=== PATIENT | male | born 1960 | race Caucasian/White ===

== ENCOUNTER 2023-10-31 02:14 | Emergency (ER) | payer MEDICARE, OTHER ==
[~2023-10-31] VITALS: Ht 172.7 cm; Wt 117.9 kg
[2023-10-31 02:37] LABS: *OCCULT BLOOD STOOL NEGATIVE (NEGATIVE)
[2023-10-31 02:55] LABS: BASOPHILS # (AUTO) 0.1 K/UL (0.0-0.2); BASOPHILS % (AUTO) 0.8 % (0.0-2.0); EOSINOPHILS # (AUTO) 0.2 K/uL (0.0-0.7); EOSINOPHILS % (AUTO) 1.6 % (0.0-7.0); HEMATOCRIT 41.5 % (36.7-47.1); HEMOGLOBIN 13.1 g/dL (12.5-16.3); LYMPHOCYTES # (AUTO) 2.6 K/uL (0.8-4.8); LYMPHOCYTES % (AUTO) 21.2 % (20.5-51.5); MEAN CORPUSCULAR HEMOGLOBIN 25.9 uug (23.8-33.4); MEAN CORPUSCULAR HGB CONC 32 g/dL (32.5-36.3); MEAN CORPUSCULAR VOLUME 82.1 fL (73.0-96.2); MONOCYTES # (AUTO) 0.9 K/uL (0.1-1.30); MONOCYTES % (AUTO) 7.5 % (0.0-11.0); NEUTROPHILS # (AUTO) 8.4 K/uL (1.8-8.9); NEUTROPHILS % (AUTO) 68.9 % (38.5-71.5); PLATELET COUNT (AUTO) 294 K/uL (152-348); RED BLOOD CELL COUNT(AUTO) 5.05 MIL/uL (4.06-5.63); RED CELL DISTRIBUTION WIDTH 18.4 % (12.1-16.2); WHITE BLOOD COUNT (AUTO) 12.2 K/uL (3.6-10.2)
[2023-10-31] MEDS ORDERED: DICYCLOMINE HCL LIQ 10 MG/5 ML UDC ONE (02:55)
[2023-10-31 02:56] LABS: DIFFERENTIAL COMMENT 1
[2023-10-31] MEDS ORDERED: HYDROMORPHONE 1 MG/1 ML DISP.SYRIN ONE (02:56)
[2023-10-31] MEDS ORDERED: DIPHENOXYLATE HCL/ATROP SULF TABLET ONE (02:56)
[2023-10-31] MEDS ORDERED: ONDANSETRON ODT 4 MG TAB.RAPDIS ONE (02:56)
[2023-10-31] MEDS: HYDROMORPHONE 1 MG/1 ML DISP.SYRIN IM ONE (02:58)
[2023-10-31] MEDS: DICYCLOMINE HCL LIQ 10 MG/5 ML UDC PO ONE (02:58)
[2023-10-31] MEDS: ONDANSETRON ODT 4 MG TAB.RAPDIS SL ONE (02:58)
[2023-10-31] MEDS: DIPHENOXYLATE HCL/ATROP SULF TABLET PO ONE (02:58)
[2023-10-31 03:03] LABS: CALCIUM 7.7 mg/dL (8.5-10.1); CARBON DIOXIDE 24 mmol/L (21-32); CHLORIDE 108 mmol/L (98-107); CREATININE 0.9 mg/dL (0.6-1.3); GLUCOSE 96 mg/dL (74-106); POTASSIUM 3.7 mmol/L (3.5-5.1); SODIUM SERUM 142 mmol/L (136-145); UREA NITROGEN, BLOOD 10 mg/dL (7-18)
[2023-10-31 03:08] LABS: ALANINE AMINOTRANSFERASE 23 U/L (16-63); ALKALINE PHOSPHATASE 79 U/L (50-136); ASPARTATE AMINOTRANSFERASE 18 U/L (15-37); BILIRUBIN,DIRECT 0.1 mg/dL (0.0-0.2); BILIRUBIN,TOTAL 0.4 mg/dL (0.2-1.0); TOTAL PROTEIN, SERUM 6.2 g/dL (6.4-8.2)
[2023-10-31 03:10] LABS: ETHANOL < 3 MG/DL (0-10)
[2023-10-31 03:17] LABS: ACETAMINOPHEN < 10.0 ug/mL (10-30)
[2023-10-31 04:26] LABS: *BILIRUBIN,URIN NEGATIVE (NEGATIVE); *BLOOD, URINE NEGATIVE (NEGATIVE); *CLARITY,URINE CLEAR (CLEAR); *COLOR,URINE YELLOW (YELLOW); *KETONES,URINE NEGATIVE (NEGATIVE); *PROTEIN,URINE TRACE (NEGATIVE); *UROBILINOGEN,URINE 0.2 E.U./dl (NORMAL); LEUKOCYTE ESTERASE ,URINE NEGATIVE (NEGATIVE); NITRITE, URINE NEGATIVE (NEGATIVE); PH,URINE 6.5 (5.0-8.0); UGLUCOSE NEGATIVE (NEGATIVE)
[2023-10-31 04:37] LABS: BACTERIA,URINE NONE SEEN /HPF (NONE SEEN); MUCUS,URINE FEW /LPF (0-FEW); RBC,URINE NONE SEEN /HPF (0-3); SQUAMOUS EPITHELIAL CELL,UR NONE SEEN /HPF (NONE SEEN); WBC,URINE NONE SEEN /HPF (0-3)
[2023-10-31 04:38] LABS: *AMPHETAMINE, URINE NEGATIVE (NEGATIVE); *BARBITURATE, URINE NEGATIVE (NEGATIVE); *BENZODIAZEPINE, URINE NEGATIVE (NEGATIVE); *CANNABINOID, URINE POSITIVE (NEGATIVE); *COCCAINE, URINE NEGATIVE (NEGATIVE); *OPIATE, URINE NEGATIVE (NEGATIVE); *PHENCYCLIDINE SCREEN,URINE NEGATIVE (NEGATIVE); FENTANYL, URINE NEGATIVE (NEGATIVE)
[2023-10-31] MEDS ORDERED: ACETAMINOPHEN 500 MG TABLET PO ONE (05:15)
[2023-10-31] MEDS ORDERED: DIPH1TAB PO (07:38)
[2023-10-31 09:09] VITALS: BP 141/86; TEMP 98.3; O2SAT 96
== END 2023-10-31 09:24 | disposition home or self-care (01) ==
LOC: ER 02:25
DX: R19.7 Diarrhea, unspecified (principal); R10.30 Lower abdominal pain, unspecified; F32.A Depression, unspecified; R45.851 Suicidal ideations; E66.9 Obesity, unspecified; I44.7 Left bundle-branch block, unspecified; I11.0 Hypertensive heart disease with heart failure; I15.0 Renovascular hypertension; F17.210 Nicotine dependence, cigarettes, uncomplicated; J44.9 Chronic obstructive pulmonary disease, unspecified; Z68.39 Body mass index [BMI] 39.0-39.9, adult; Z20.822 Contact with and (suspected) exposure to COVID-19
CPT/HCPCS: 80076; 80048; 81001; 82270; 85025; 87426; 84484 ×2; 36415; 93005; 71045; 74176; 99285; 96372; 80299; 80320; 80307; 99406; J1170; A4606; A4663; G0480; Q0162